=== PATIENT | female | born 1945 | race Caucasian/White ===

== ENCOUNTER 2017-09-15 07:33 | Outpatient (CLI) | payer OTHER ==
[~2017-09-15 07:33] MED LIST: ASA81 MG PO; BENTYL10 MG/ML IM; CALCIUM600 MG PO; CIPRO750 MG PO; CRESTOR10 MG PO; CRESTOR40 MG; DIOVAN; DIOVAN160 M1 PO; GLUCOPHAGE XR500 MG PO; NABUMETONE500 MG PO; SUPER B W/C1 CAP PO; VITAMIN D400 UNI2 PO
== END 2017-09-15 07:34 | disposition home or self-care (01) ==
LOC: NUCLEAR 07:33
DX: I11.9 Hypertensive heart disease without heart failure (principal); E11.9 Type 2 diabetes mellitus without complications; I24.8 Other forms of acute ischemic heart disease; E78.00 Pure hypercholesterolemia, unspecified; I25.10 Atherosclerotic heart disease of native coronary artery without angina pectoris
CPT/HCPCS: 78452; 93017; A9500; J0153

== ENCOUNTER 2020-01-20 14:03 | Outpatient (CLI) | payer OTHER | END 2020-01-20 14:17 | disposition home or self-care (01) | LOC: TOM 14:03 | PROVIDERS: ATTEND Internal Medicine | DX: K57.32 Diverticulitis of large intestine without perforation or abscess without bleeding (principal); R10.84 Generalized abdominal pain ==

== ENCOUNTER 2020-09-24 11:35 | Emergency (ER) | payer OTHER ==
[~2020-09-24] VITALS: Ht 160 cm; Wt 61.2 kg
[2020-09-24] MEDS ORDERED: PYRIDIUM DS200 MG PO (15:25)
[2020-09-24] MEDS ORDERED: MACROBID 100 M100 MG PO (15:25)
== END 2020-09-24 15:43 | disposition home or self-care (01) ==
LOC: ER 11:35
DX: N39.0 Urinary tract infection, site not specified (principal); R31.0 Gross hematuria; K57.30 Diverticulosis of large intestine without perforation or abscess without bleeding

== ENCOUNTER 2020-11-02 08:13 | Outpatient (CLI) | payer OTHER ==
[~2020-11-02 08:13] MED LIST changes: +MACROBID 100 M100 MG PO; +PYRIDIUM DS200 MG PO
== END 2020-11-02 08:14 | disposition home or self-care (01) ==
LOC: NUCLEAR 08:13
PROVIDERS: ATTEND Internal Medicine
DX: M81.0 Age-related osteoporosis without current pathological fracture (principal)

== ENCOUNTER 2022-05-23 16:56 | Emergency (ER) | payer OTHER ==
[~2022-05-23] VITALS: Ht 160 cm; Wt 63.5 kg
[2022-05-23] MEDS ORDERED: LOSARTAN POTASS50 MG PO (17:27)
== END 2022-05-23 22:07 | disposition home or self-care (01) ==
LOC: ER 16:56
DX: S00.83XA Contusion of other part of head, initial encounter (principal); S80.01XA Contusion of right knee, initial encounter; W19.XXXA Unspecified fall, initial encounter; Y93.9 Activity, unspecified; Y92.9 Unspecified place or not applicable; Y99.9 Unspecified external cause status